=== PATIENT | female | born 1985 | race Caucasian/White ===

== ENCOUNTER → 2019-02-04 08:07 | Outpatient (POV) | payer MEDICAID, SELFPAY ==
[2019-02-04 08:50] LABS: Basophils # 0.1 K/mm3 (0-0.2); Basophils % 0.8 % (0.1-2.0); Eosinophils # 0.4 K/mm3 (0.0-0.4); Eosinophils % 3.6 % (0.1-12.0); Hematocrit 47.3 % (37.0-47.0); Lymphocytes # 3.1 K/mm3 (0.7-4.5); Lymphocytes % 27.3 % (10-50); Mean Corpuscular HGB Conc 31.7 g/dL (31.8-35.4); Mean Corpuscular Hemoglobin 25.2 pg (27.0-31.2); Mean Corpuscular Volume 79.4 fl (81-99); Mean Platelet Volume 7.7 fl (7.4-10.4); Monocytes # 0.5 K/mm3 (0.1-1.0); Monocytes % 4.3 % (1.7-9.3); Neutrophils # 7.3 K/mm3 (1.8-7.8); Neutrophils % 64.2 % (37.0-80.0); Platelet Count 298 K/mm3 (142-424); Red Blood Count 5.96 M/mm3 (4.20-5.40); Red Cell Distribution Width 13.5 % (11.5-17.5); White Blood Count 11.4 K/mm3 (4.8-10.8)
[2019-02-04 09:15] LABS: Urine Pregnancy, HCG Qual. Negative (Negative)
== END ==
PROVIDERS: Visit Provider Otolaryngology
DX: J34.2 Deviated nasal septum (principal); J34.3 Hypertrophy of nasal turbinates; H68.101 Unspecified obstruction of Eustachian tube, right ear; Z01.812 Encounter for preprocedural laboratory examination
CPT/HCPCS: 36415; 81025; 85025

== ENCOUNTER → 2019-08-30 11:26 | Outpatient (CLI) | payer OTHER, SELFPAY ==
--- NOTE | 2019-08-30 | US_ITS ---
PROCEDURE: US GALLBLADDER CLINICAL INDICATION: Right upper quadrant pain for 2 weeks COMPARISON: RUQ US RUQ-(ABD LTD)1ORGAN/QUAD/FU from 02/19/2013 FINDINGS: Pancreas: Unremarkable except that portions of the distal body and tail are obscured by bowel gas. Liver: Unremarkable. There is appropriate direction of blood flow within a non dilated portal vein. Right kidney: The right kidney measures 10.1 x 4.9 x 5.0 cm and appears sonographically normal. Gallbladder: The gallbladder is normal in size and there are 2 moderate-sized calcified gallstone showing prominent acoustic shadowing beneath. The gallbladder wall is normal thickness. The common bile duct is normal in caliber. The previous ultrasound study February 2013 showed a normal appearing gallbladder. IMPRESSION: Cholelithiasis Dictated by: Dr. Nakul Sellers MD 08/30/2019 12:[address] Nakul Sellers MD in [place] 08/30/2019 12:54
== END ==
PROVIDERS: PCP Nurse Practitioner Family; Visit Provider Nurse Practitioner Family
DX: R10.11 Right upper quadrant pain (principal)
CPT/HCPCS: 76705

== ENCOUNTER → 2019-10-03 11:38 | Outpatient (CLI) | payer OTHER, SELFPAY ==
[2019-10-03 12:17] LABS: Basophils # 0.1 K/mm3 (0-0.2); Basophils % 0.6 % (0.1-2.0); Eosinophils # 0.4 K/mm3 (0.0-0.4); Eosinophils % 3.6 % (0.1-12.0); Hematocrit 47.1 % (37.0-47.0); Hemoglobin 15.8 g/dL (12.2-16.2); Lymphocytes # 3.1 K/mm3 (0.7-4.5); Lymphocytes % 27.9 % (10-50); Mean Corpuscular HGB Conc 33.4 g/dL (31.8-35.4); Mean Corpuscular Hemoglobin 25.6 pg (27.0-31.2); Mean Corpuscular Volume 76.7 fl (81-99); Mean Platelet Volume 7.1 fl (7.4-10.4); Monocytes # 0.5 K/mm3 (0.1-1.0); Monocytes % 4.3 % (1.7-9.3); Neutrophils % 63.5 % (37.0-80.0); Platelet Count 290 K/mm3 (142-424); Red Blood Count 6.15 M/mm3 (4.20-5.40); Red Cell Distribution Width 13.3 % (11.5-17.5); White Blood Count 11.1 K/mm3 (4.8-10.8)
[2019-10-03 13:22] LABS: Alanine Aminotransferase 11 U/L (12-78); Albumin Level 4.4 g/dl (3.5-5.0); Albumin/Globulin Ratio 1.5 (1.1-1.8); Alkaline Phosphatase 95 U/L (38-126); Anion Gap 13.3 mEq/L (5-15); Aspartate Amino Transferase 20 U/L (14-36); Bilirubin,Total 0.4 mg/dl (0.2-1.3); Blood Urea Nitrogen 8 mg/dl (7-17); Calcium 10.8 mg/dl (8.4-10.2); Carbon Dioxide 25 mmol/L (22.0-30.0); Chloride 104 mmol/L (98-107); Estimated Glomerular Filt Rate 96 ml/min (>60); GFR (African American) 117 ML/MIN (>60); Globulin 2.9 g/dL (1.3-3.2); Glucose 105 mg/dl (74-100); Potassium 4.3 mmoL/L (3.5-5.1); Sodium 138 mmol/L (136-145); Total Protein,Serum 7.3 g/dl (6.3-8.2)
[2019-10-03 14:39] LABS: HCG Qualitative, Serum Negative (Negative)
[2019-10-03 17:07] LABS: Coronavirus 19 IgG Antibody Negative (Negative); Coronavirus 19 IgM Antibody Negative (Negative)
== END ==
PROVIDERS: Visit Provider Surgery
DX: Z01.818 Encounter for other preprocedural examination (principal); K80.20 Calculus of gallbladder without cholecystitis without obstruction
CPT/HCPCS: 36415; 80053; 84703; 85025; 86328

== ENCOUNTER 2019-10-04 05:59 | Day surgery (SDC) | payer OTHER, SELFPAY ==
--- NOTE | 2019-10-02 09:39 | SUR.PREOP ---
10/02/2019 @ 0940--PHONE CALL MADE TO PATIENT. PATIENT UNDERSTANDS THAT LAB WORK AND COVID TESTING NEEDS TO BE COMPLETED B/W 8-12. PATIENT UNDERSTANDS IF LAB WORK AND COVID-19 TESTS ARE NOT COMPLETED BY 12PM ON THAT DATE, THE SURGERY SCHEDULED WILL BE CANCELLED AND RESCHEDULED FOR ANOTHER TIME.
[2019-10-03 13:18] VITALS: BMI 29.7
[2019-10-04] VITALS (14 sets, daily range): BP systolic 108–135; BP diastolic 64–78; PULSE 66–83; RESP 14–18; TEMP 36.7–43; O2SAT 94–99
--- NOTE | 2019-10-04 07:02 | HMH.ANESCL ---
[facility] Anesthesia Checklist - Patient Identification Patient Identification: Arm Band, Verbal (Name & ) - Structural Data Admitted From: Home Planned Operative Procedure/s: lap choly Consent for Planned Operative Procedure(s) Verified: Yes Verified Documents: History and Physical - NPO Status Verified Time NPO: 00:00 - Chart Verification Results Verified: CBC, BMP - Additional verifications Patient : No Anesthesia Reactions: No Hx Blood Transfusions: No Blood Transfusion Reaction: No Cephalosporin Allergy: No Previous Colonoscopy: No - Cardiovascular Assessment Heart Sounds: S1 & S2 Pulse Strength: Baseline Pulse Rhythm: Regular Peripheral Edema: No - Airway Assessment C-Spine Mobility Assessed: Yes TMJ Mobility Assessed: Yes Dentition: Good Dentition - Neurological Assessment Level of Consciousness: Awake, Alert, Appropriate Hx Seizures: No Numbness or tingling in extremities: No - Anesthesia Plan Anesthesia Risk discussed: Yes Anesthesia Plan: Verified ASA Class: II Anesthesia Type: General [facility] History I have reviewed the patient's past medical history: Yes Medical History: Denies:: Cancer, Diabetes Mellitus Type 1, Diabetes Mellitus Type 2, Internal Pacemaker, MRSA, Seizures *Have you ever received a pneumonia vaccine?: No *Have you received a flu vaccine this season?: No Other Medical History: Reports: Other. Denies: Blood Transfusion Reaction Anesthesia experience/problems:: none Laterality Cases: Right: Breast Biopsy Other Surgeries: Yes: , Sinus Surgery, Tubal Ligation, Other. No: Pacemaker Amputation: No Fractures: No - *Social History Educational Level: Completed High School Smoking Status: Current every day smoker Tobacco Type: cigarettes # Packs/Day (cigarettes): 1 #Yrs smoked (if former smoker): 13 Alcohol Intake: current Alcohol Intake Frequency:: holidays/special occasions only Substance Use Type: marijuana *Occupational Status:: employed Housing: house Household Members: spouse, family *Travel in the last 8 weeks: None - Psychiatric History Pschychiatric History:: Reports:: Bipolar Disorder Family Hx:: No significant family history
--- NOTE | 2019-10-04 08:36 | HMH.OPNOTE ---
Date of procedure: 10/04/19 Pre-op Diagnosis:: Symptomatic cholelithiasis Post-op Diagnosis:: Chronic calculus cholecystitis Procedure performed:: Laparoscopic cholecystectomy Surgeon:: Elliott Blanton MD [employer] OFFICER:: Jassi Estrada Anesthesia: GETA Estimated blood loss (mL): 15 Operative findings:: Small pericholecystic liver nodule Significant pericholecystic fat stranding Significant gallbladder distention Operative note:: After informed consent was obtained, the patient was taken to the operating room and placed in the supine position. General anesthesia was induced and the abdomen was prepped and draped in a sterile fashion. After infiltration with local anesthetic an infraumbilical incision was made. A Veress needle was placed in position. The abdomen was insufflated. A 5 mm optical trocar was placed in position. Under direct visualization, a 12 mm trocar was placed in the subxiphoid position and 2 additional 5 mm trocars were placed in the right upper quadrant. The gallbladder was elevated up and over the liver margin. The tissue around the cystic duct was carefully dissected. 3 clips were placed proximally and the duct was transected with harmonic joan. Harmonic joan were then utilized to dissect the gallbladder away from the liver margin with careful attention to the control of the cystic artery (artery also controlled with 2 clips prior to harmonic dissection). The gallbladder was placed in a retrieval bag and removed through the subxiphoid trocar site. The right upper quadrant was thoroughly irrigated. No active bleeding or bile leak was noted. Fascia at the subxiphoid trocar site was reapproximated utilizing 0 Ethibond. The remaining trocars were removed. All wounds were irrigated and skin was closed with 4-0 Monocryl in a subcuticular fashion. Steri-Strips were applied. The patient's anesthetic agents were reversed and extubation was completed prior to transfer to recovery in stable condition. Condition: stable Disposition: PACU Specimens:: Gallbladder and contents Pericholecystic liver nodule Complications:: No immediate
--- NOTE | 2019-10-04 08:46 | P.PN_ITS ---
[facility] Anesthesia Record Part I Intake, IV Amount: 800 Estimated blood loss (mL): 10 Urine output (mL): 0 Blood Products used (#): none Blood Pressure: 135/77 SaO2: 99 Pulse Rate: 73 Respiratory Rate: 18 Temperature: 98.3 F Patient is:: Drowsy, Stable Stable to PACU at:: 08:43
--- NOTE | 2019-10-04 10:30 | HMH.ANESII ---
[facility] Anesthesia Record Part II Discharge Time: 09:15 Destination: Surgical Day Care (OP Surgery) PACU nurse assessment reviewed?: Yes Patient Condition:: Good Anesthesia Complications:: None Swallowing reflex intact?: Yes Cyanosis?: No Blood Pressure: 126/77 Pulse Rate: 77 Temperature: 98.6 F Mental Status: Alert & Oriented Pain level:: 4 Nausea and/or vomitting:: None Intake, IV Amount: 50
== END 2019-10-04 10:15 | disposition home or self-care (01) ==
LOC: OR 06:01
PROVIDERS: PCP Nurse Practitioner Family; Visit Provider Surgery
PROC: 0FT44ZZ Resection of Gallbladder, Percutaneous Endoscopic Approach (ICD-10-PCS; CPT 47562; principal; 2019-10-04 07:30)
DX: K80.10 Calculus of gallbladder with chronic cholecystitis without obstruction; K76.9 Liver disease, unspecified; Z88.5 Allergy status to narcotic agent; Z79.899 Other long term (current) drug therapy; Z72.0 Tobacco use; F31.9 Bipolar disorder, unspecified; F19.11 Other psychoactive substance abuse, in remission
CPT/HCPCS: 47562; 96374; J2405; J2710

== ENCOUNTER → 2020-03-20 14:28 | Outpatient (CLI) | payer OTHER, SELFPAY ==
--- NOTE | 2020-03-20 14:42 | US_ITS ---
PROCEDURE: US THYROID CLINICAL INDICATION: thyroid enlarged COMPARISON: No exams were available for comparison FINDINGS: The right lobe is 4 x 0.9 x 1.1 cm. A 2 mm hypoechoic nodule with a central hyperechoic focus is present in the mid polar region. The left lobe is 4.8 x 1.1 x 1.7 cm. A 6 x 4 mm mixed nodule is present in the lower pole. A 2 point by 1.2 cm slightly hypoechoic well-circumscribed nodules present in the lower pole T rads level 32.5 cm or greater. Suggest ultrasound-guided FNA. IMPRESSION: TR level 3 nodule 2.5 cm or greater in the lower pole on the left. Recommend ultrasound-guided FNA. Dictated by: Quinten Landa MD 03/20/2020 16:30 Quinten Landa MD in [place] 03/20/2020 16:30
[2020-03-20 16:54] LABS: Free T4 (Free Thyroxine) 0.87 ng/dl (0.78-2.19)
[2020-03-20 17:07] LABS: Thyroid Stimulating Hormone 1.09 uIU/mL (0.465-4.68)
[2020-03-24 12:37] LABS: Thyroid Peroxidase Antibodies <9 IU/mL (0-34)
[2020-03-25 11:53] LABS: Thyroid Stimulating Immunoglob <0.10 IU/L (0.00-0.55)
== END ==
PROVIDERS: PCP Nurse Practitioner Family; Visit Provider Otolaryngology
DX: E01.0 Iodine-deficiency related diffuse (endemic) goiter (principal)
CPT/HCPCS: 36415; 76536; 84439; 84443; 84445; 86376

== ENCOUNTER → 2020-03-31 12:45 | Outpatient (CLI) | payer OTHER, SELFPAY ==
--- NOTE | 2020-03-31 12:45 | US_ITS ---
PROCEDURE: US FNA THYROID CLINICAL INDICATION: Thyroid nodule COMPARISON: US US THYROID from 03/20/2020 TECHNIQUE: Pre biopsy exam performed once again confirming the solid nodule in the lower pole on the left. Following obtaining informed consent, using aseptic technique and local anesthesia with buffered lidocaine, fine-needle aspiration was performed of the nodule of interest using sonographic guidance. 3 passes were made into the nodule with a 21 gauge needle. Specimen was given to cytology. The patient tolerated the procedure well without evidence of immediate complications and left the ultrasound suite in stable condition. FINDINGS: CYTOLOGY: Benign follicular nodule. Negative for malignancy IMPRESSION: Uneventful ultrasound-guided FNA of the left thyroid nodule showing benign follicular nodule, negative for malignancy. Dictated by: Quinten Landa MD 05/01/2020 14:57 Quinten Landa MD in [place] 05/01/2020 14:57
== END ==
PROVIDERS: PCP Nurse Practitioner Family; Visit Provider Otolaryngology
DX: E01.0 Iodine-deficiency related diffuse (endemic) goiter (principal); E04.9 Nontoxic goiter, unspecified
CPT/HCPCS: 10005; 76942

== ENCOUNTER → 2020-06-30 12:48 | Outpatient (CLI) | payer OTHER, SELFPAY ==
--- NOTE | 2020-06-30 12:48 | US_ITS ---
PROCEDURE: US THYROID CLINICAL INDICATION: goiter COMPARISON: US US THYROID from 03/20/2020 US US FNA THYROID from 03/31/2020 FINDINGS: The right lobe is 3.8 x 1.3 x 1.2 cm. The left lobe is 4.7 x 1.3 x 2.3 cm. There is a small cyst in the right lobe upper pole at 2 mm. In the left lower pole there is a mixed nodule at 6 mm unchanged. A well-circumscribed solid 2.3 x 1.1 cm nodules present in the lower pole unchanged. This nodule was recently biopsied with FNA and with negative for malignant cells. No new nodules are evident. IMPRESSION: Stable ultrasound of the thyroid with no change in the 2 left-sided thyroid nodules. Dictated by: Quinten Landa MD 07/01/2020 18:07 Quinten Landa MD in [place] 07/01/2020 18:07
== END ==
PROVIDERS: PCP Nurse Practitioner Family; Visit Provider Otolaryngology
DX: E01.0 Iodine-deficiency related diffuse (endemic) goiter (principal); E04.9 Nontoxic goiter, unspecified
CPT/HCPCS: 76536

== ENCOUNTER → 2020-10-23 09:10 | Outpatient (CLI) | payer OTHER, SELFPAY ==
--- NOTE | 2020-10-23 09:14 | XR_ITS ---
PROCEDURE: XR FOOT WT BEARING LT 3V CLINICAL INDICATION: foot pain COMPARISON: CR FTR3 FOOT-RT-3 VIEWS from 02/19/2014 CR FTL3 FOOT-LT-3 VIEWS from 11/21/2016 CR FTL3 FOOT-LT-3 VIEWS from 01/27/2017 FINDINGS: No fracture or dislocation. No lytic or blastic change. There is normal mineralization. The joint spaces are well-preserved. No significant degenerative/arthritic changes. No erosive changes evident. Other findings:Small accessory center of ossification noted at the anterior distal tibia IMPRESSION: No change with no acute finding Dictated by: Quinten Landa MD 10/23/2020 10:22 Quinten Landa MD in [place] 10/23/2020 10:22
== END ==
PROVIDERS: PCP Nurse Practitioner Family; Visit Provider Podiatrist
DX: M79.672 Pain in left foot (principal)
CPT/HCPCS: 73630

== ENCOUNTER 2021-01-30 09:45 | Emergency (ER) | payer OTHER, SELFPAY ==
[2021-01-30 09:55] VITALS: BP 127/81; PULSE 96; RESP 19; TEMP 37.1; O2SAT 99; BMI 26.6
--- NOTE | 2021-01-30 10:45 | HMH.EDUTC ---
[facility] [place] Disposition Clinical Impression: Acute bronchitis Qualifiers: Bronchitis organism: unspecified organism Qualified Code(s): J20.9 - Acute bronchitis, unspecified Disposition: Home, Self-Care Condition on Discharge: Good Instructions: DI for Acute Bronchitis Additional Instructions: Start antibiotic today. Be sure to complete entire prescription even if feeling better Tylenol and ibuprofen as needed for pain or fever Humidifier/vaporizer/hot steamy shower Follow-up with primary care tomorrow. Follow-up immediately in the ER of the [facility] for new or worsening symptoms or no noticeable improvement over the next 48-72 hours. Stop smoking Start steroids today. Helps with inflammation therefore coughing and wheezing. Follow directions on package. Prescriptions: predniSONE [Prednisone 20mg Tab] 20 mg PO BID #10 tab Transmission Status: Pending to [id number] Azithromycin [Zithromax 250mg tab] 250 mg PO DIRECTED #6 tab Transmission Status: [facility] Referrals: Zenia Hatch APRN [Primary Care Provider] - Medical Decision Making - Javi Inquiry Pt receiving controlled substance: No Vital Signs: 01/30/21 09:55 Temperature 98.7 F Temperature Source Oral Pulse Rate [Right Brachial] 96 H Respiratory Rate 19 Blood Pressure [Right Arm] 127/81 Blood Pressure Mean [Right Arm] 96 Blood Pressure Source [Right Arm] Automatic Cuff Blood Pressure Position [Right Arm] Sitting 02 Sat by Pulse Oximetry 99 Oxygen Delivery Method Room Air Orders (Tests/Meds): ORDERS Category Date Time Status Covid-19 Nasal PCR ([facility]) Routine Lab 01/30/21 10:43 Ordered [facility] [place] HPI - General Chief complaint: Urgent Treatment [facility] Stated complaint: congestion, cough Time Seen by Provider: 01/30/21 10:46 Mode of Arrival: Ambulatory Source of Information: Patient Limitations: No Limitations Description of Symptoms (Recalled from Triage Doc. by RN): PATIENT C/O COUGH AND CONGESTION X 3 DAYS HEENT Symptoms (Recalled from RN notes): Yes Resp Symptoms (Recalled from RN notes): Yes Skin Symptoms (Recalled from RN notes): No MS Symptoms (Recalled from RN notes): No Functional Status (Recalled from RN notes): WNL - History of Present Illness Provider Complaint: 35 yr old female presents for congestion, coughing and wheezing since weds. pt states she had a family member that was dx with bronchititis. - Related Data Previous Rx's Medication Instructions Recorded Azithromycin [Zithromax 250mg 250 mg PO DIRECTED #6 tab 01/30/21 tab] predniSONE [Prednisone 20mg 20 mg PO BID #10 tab 01/30/21 Tab] Allergies Allergy/AdvReac Type Severity Reaction Status Date / Time oxycodone [From PERCOCET] Allergy Unknown Verified 11/02/20 10:33 - Worker's Comp Is this a Worker's Comp case?: No [facility] History - Hepatitis A Screen Drug use history?: No High risk sexual behaviors?: No History of sexually transmitted infection?: No Currently employed?: No Childcare worker?: No Do you have indoor plumbing?: Yes Do you have electricity?: Yes Attestation statement:: This patient has been screened for Hepatitis A risk factors. I have reviewed the patient's past medical history: Yes Medical History: Reports:: Anxiety Denies:: Cancer, Diabetes Mellitus Type 1, Diabetes Mellitus Type 2, Internal Pacemaker, MRSA, Seizures Other Medical History: Reports: Sinus Problems, Other. Denies: Blood Transfusion Reaction Laterality Cases: Right: Breast Biopsy Other Surgeries: Yes: Cholecystectomy, (2014), Sinus Surgery, Tubal Ligation (2014), Other. No: Pacemaker Amputation: No Fractures: No Comment: Cyst removed from left breast,. mole removed from back of right ear. Left foot cyst removal in 2017 - Social History Smoking Status: Current every day smoker Tobacco Type: cigarettes # Packs/Day (cigarettes): 1 #Yrs smoked (if former smoker): 13 Alcohol Intake: never A
[2021-01-30 10:55] VITALS: BP 127/81; PULSE 96; RESP 19; TEMP 37.1; O2SAT 99
== END 2021-01-30 11:00 | disposition home or self-care (01) ==
PROVIDERS: Emergency Provider Nurse Practitioner Family; PCP Nurse Practitioner Family
DX: J20.9 Acute bronchitis, unspecified (principal); Z20.822 Contact with and (suspected) exposure to COVID-19; F41.9 Anxiety disorder, unspecified; F17.210 Nicotine dependence, cigarettes, uncomplicated
CPT/HCPCS: 99202; C9803; G0463; U0003; U0005

== ENCOUNTER → 2021-02-03 10:00 | Outpatient (CLI) | payer OTHER, SELFPAY | PROVIDERS: PCP Nurse Practitioner Family; Visit Provider Nurse Practitioner | DX: Z20.822 Contact with and (suspected) exposure to COVID-19 (principal) | CPT/HCPCS: C9803; U0003; U0005 ==

== ENCOUNTER 2021-04-19 09:20 | Emergency (ER) | payer OTHER, SELFPAY ==
[2021-04-19 09:55] VITALS: BP 113/76; PULSE 70; RESP 20; TEMP 36.6; O2SAT 99; BMI 29.9
--- NOTE | 2021-04-19 10:21 | HMH.EDUTC ---
[facility] [place] Disposition Clinical Impression: URI (upper respiratory infection) Qualifiers: URI type: unspecified URI Qualified Code(s): J06.9 - Acute upper respiratory infection, unspecified Disposition: Home, Self-Care Condition on Discharge: Good Instructions: Sore Throat, DI for Chronic Pain -- Adult, Nystatin, Cefdinir Additional Instructions: *Monitor Temp, Over the counter Motrin or Tylenol as directed/as needed Tylenol every 4 hours and Motrin every 6 hours (as long as your family doctor has told you that you can take it) for fever or pain. and straight to ER if unable to lower temp less than 101.0 after medication given *Warm salt water gargles may help to soothe the throat *Throat Lozenges *Warm fluids like tea with honey may help to soothe the throat *Sleep elevated *Humidifier/Vaporizer Take medication as prescribed Your throat swab was sent for culture. Those results are typically sent to your primary care. Be sure to follow up in 2-3 days with your family doctor/primary care physician if no improvement so they can review those result and treat if necessary. If you don?t have a primary care doctor, I recommend you get one but in the mean time, you will have to return to a walk in clinic Follow up IMMEDIATELY for new or worsening symptoms or no Noticeable improvement over the next 48-72 hours. 911 for difficulty breathing or swallowing You were tested for today for COVID19 your test result should be back in the next 24-48 hours, you may Check your results on the [facility] My Health Portal if you have trouble logging on you may call You was given a handout with instructions for Self Quarantine and Self isolation for while you wait on test results and what to do if they are positive If you are positive the Health Dept will be contacting you also Make sure to take your Vitamins Vit. C Vit D and Zinc if you can take them Prescriptions: Nystatin [Nystatin Susp 500,000 Units/5mL Udc] 4 ml PO QID 10 Days #160 ml Transmission Status: [facility] Cefdinir [Omnicef 300mg Capsule] 300 mg PO BID #20 cap Transmission Status: Sent to [facility] Referrals: Zenia Hatch APRN [Primary Care Provider] - As needed Forms: Work/School Release Time of Disposition: 10:47 Medical Decision Making - Javi Inquiry Pt receiving controlled substance: No Javi was queried for this patient: No Vital Signs: 04/19/21 09:55 Temperature 97.9 F Temperature Source Oral Pulse Rate [Right Brachial] 70 Respiratory Rate 20 Blood Pressure [Right Arm] 113/76 Blood Pressure Mean [Right Arm] 88 Blood Pressure Source [Right Arm] Automatic Cuff Blood Pressure Position [Right Arm] Sitting 02 Sat by Pulse Oximetry 99 Oxygen Delivery Method Room Air - Lab Data Lab results reviewed: Yes: I reviewed the patient's lab results. Lab Results 04/19/21 09:44: Strep Scn Rapid Clinic Negative 04/19/21 10:21: Monoscreen Negative Orders (Tests/Meds): ORDERS Category Date Time Status Covid-19 Nasal PCR ([facility]) Routine Lab 04/19/21 10:49 Ordered Strep Screen Confirmation Stat Micro 04/19/21 09:44 Received [facility] UTC HPI - General Stated complaint: possible strep Time Seen by Provider: 04/19/21 10:22 Mode of Arrival: Ambulatory Source of Information: Patient Limitations: No Limitations Description of Symptoms (Recalled from Triage Doc. by RN): PATIENT C/O SWOLLEN LYMPH NODES IN NECK AND SORE THROAT SINCE MONDAY HEENT Symptoms (Recalled from RN notes): Yes Resp Symptoms (Recalled from RN notes): No Skin Symptoms (Recalled from RN notes): No MS Symptoms (Recalled from RN notes): No Functional Status (Recalled from RN notes): WNL - History of Present Illness Provider Complaint: Patient state that she has been having sore throat and swelling in her lymph nodes States that she noticed her tongue looked white and she tried to scrap it off it but it wouldnt come off States that today she was still feeling bad so she came
[2021-04-19 10:24] LABS: UTC Strep Screen (Rapid) Negative (Negative)
[2021-04-19 10:43] LABS: Monoscreen (Rapid) Negative (Negative)
[2021-04-19 10:52] VITALS: BP 113/76; PULSE 70; RESP 20; TEMP 36.6; O2SAT 99
== END 2021-04-19 10:58 | disposition home or self-care (01) ==
PROVIDERS: Emergency Provider Nurse Practitioner; PCP Nurse Practitioner Family
DX: J06.9 Acute upper respiratory infection, unspecified (principal); J02.9 Acute pharyngitis, unspecified; F41.9 Anxiety disorder, unspecified; F17.210 Nicotine dependence, cigarettes, uncomplicated; Z20.822 Contact with and (suspected) exposure to COVID-19
CPT/HCPCS: 86318; 87880; 99203; C9803; G0463; U0003; U0005

== ENCOUNTER 2021-06-01 17:08 | Emergency (ER) | payer OTHER, SELFPAY ==
[2021-06-01 17:15] VITALS: BP 129/79; PULSE 76; RESP 16; TEMP 37; O2SAT 99; BMI 27.4
--- NOTE | 2021-06-01 17:22 | XR_ITS ---
PROCEDURE INFORMATION: Exam: XR Right Foot Exam date and time: 06/01/2021 5:22 PM Age: 36 years old Clinical indication: Pain; Foot; Right; Additional info: Pain at mid lateral foot, no known injury TECHNIQUE: Imaging protocol: XR Right foot. Views: 3 or more views. COMPARISON: No relevant prior studies available. FINDINGS: Bones/joints: There is no evidence of acute fracture. There is no evidence of joint malalignment or dislocation. Soft tissues: No focal soft tissue swelling. IMPRESSION: 1. No evidence of acute fracture. 2. No evidence of acute dislocation.
--- NOTE | 2021-06-01 18:10 | HMH.EDUTC ---
[facility] [place] Clinical Impression: Thrush Foot sprain Qualifiers: Encounter type: initial encounter Laterality: right Qualified Code(s): S93.601A - Unspecified sprain of right foot, initial encounter Disposition: Home, Self-Care Condition on Discharge: Good Instructions: DI for Thrush, Nystatin, Thrush-Adult Additional Instructions: Use Nystatin as prescribed Ice to foot 2-3 times daily to help with pain and swelling Follow up with your Family Doctor if pain continues Return if needed Straight to ER if any life threatening symptoms Prescriptions: Nystatin [Nystatin Susp 500,000 Units/5mL Udc] 4 ml PO QID 10 Days #160 ml Transmission Status: Pending to [id number] Referrals: Zenia Hatch APRN [Primary Care Provider] - As needed Time of Disposition: 18:21 Medical Decision Making - Javi Inquiry Pt receiving controlled substance: No Javi was queried for this patient: No Vital Signs: 06/01/21 17:15 Temperature 98.6 F Temperature Source Oral Pulse Rate [Right Brachial] 76 Respiratory Rate 16 Blood Pressure [Right Arm] 129/79 Blood Pressure Mean [Right Arm] 95 Blood Pressure Source [Right Arm] Automatic Cuff Blood Pressure Position [Right Arm] Sitting 02 Sat by Pulse Oximetry 99 Oxygen Delivery Method Room Air - Radiology Data #1 Image(s): Foot/Toes Image Reviewed: Yes I have reviewed radiologist's interpretation IMPRESSION: 1. No evidence of acute fracture. 2. No evidence of acute dislocation. [facility] [place] - General Stated complaint: pain in R foot no accident possible thrush Time Seen by Provider: 06/01/21 18:10 Mode of Arrival: Ambulatory Source of Information: Patient Limitations: No Limitations Description of Symptoms (Recalled from Triage Doc. by RN): PATIENT C/O PAIN IN RIGHT FOOT X 2 DAYS AND IS CONCERNED SHE HAS THRUSH IN MOUTH HEENT Symptoms (Recalled from RN notes): Yes Resp Symptoms (Recalled from RN notes): No Skin Symptoms (Recalled from RN notes): No MS Symptoms (Recalled from RN notes): No Functional Status (Recalled from RN notes): WNL - History of Present Illness Provider Complaint: Patient states that she has been having pain in the side of her right foot Denies any known injury States that it just hurts at times when she is walking States that also she had thrush awhile back and thinks it may have returned States that she noticed white thick film on her tongue like she had when she had thrush so she wanted that looked at too - Related Data Home Medications Medication Instructions Recorded Confirmed Escitalopram Oxalate [Lexapro] 10 mg PO DAILY 06/01/21 06/01/21 Previous Rx's Medication Instructions Recorded Nystatin [Nystatin Susp 500,000 4 ml PO QID 10 Days #160 ml 06/01/21 Units/5mL Udc] Allergies Allergy/AdvReac Type Severity Reaction Status Date / Time oxycodone [From PERCOCET] Allergy Unknown Verified 11/02/20 10:33 - Worker's Comp Is this a Worker's Comp case?: No [facility] History - Hepatitis A Screen Drug use history?: No High risk sexual behaviors?: No History of sexually transmitted infection?: No Currently employed?: No Childcare worker?: No Do you have indoor plumbing?: Yes Do you have electricity?: Yes Attestation statement:: This patient has been screened for Hepatitis A risk factors. I have reviewed the patient's past medical history: Yes Medical History: Reports:: Anxiety Denies:: Cancer, Diabetes Mellitus Type 1, Diabetes Mellitus Type 2, Internal Pacemaker, MRSA, Seizures Other Medical History: Reports: Sinus Problems, Other. Denies: Blood Transfusion Reaction Laterality Cases: Right: Breast Biopsy Other Surgeries: Yes: Cholecystectomy, (2013), Sinus Surgery, Tubal Ligation (2013), Other. No: Pacemaker Amputation: No Fractures: No Comment: Cyst removed from left breast,. mole removed from back of right ear. Left foot cyst removal in 2017 - Social History Smoking Status: Current ever
[2021-06-01 18:22] VITALS: BP 129/79; PULSE 76; RESP 16; TEMP 37; O2SAT 99
== END 2021-06-01 18:26 | disposition home or self-care (01) ==
PROVIDERS: Emergency Provider Nurse Practitioner; PCP Nurse Practitioner Family
DX: S93.601A Unspecified sprain of right foot, initial encounter (principal); B37.9 Candidiasis, unspecified; F41.9 Anxiety disorder, unspecified; F17.210 Nicotine dependence, cigarettes, uncomplicated
CPT/HCPCS: 73630; 99202; G0463

== ENCOUNTER → 2021-07-13 07:22 | Outpatient (CLI) | payer OTHER, SELFPAY ==
[2021-07-13 08:34] LABS: Urine Pregnancy, HCG Qual. Negative (Negative)
== END ==
PROVIDERS: Visit Provider Student in an Organized Health Care Education/Training Program
DX: Z01.812 Encounter for preprocedural laboratory examination (principal); Z11.52 Encounter for screening for COVID-19; L98.9 Disorder of the skin and subcutaneous tissue, unspecified
CPT/HCPCS: 81025; C9803; U0003; U0005

== ENCOUNTER 2021-07-14 06:22 | Day surgery (SDC) | payer OTHER, SELFPAY ==
[2021-07-12 09:20] VITALS: BMI 26.6
[2021-07-14 07:01] VITALS: BP 105/61; PULSE 66; RESP 18; TEMP 36.3; O2SAT 99
--- NOTE | 2021-07-14 07:56 | P.PN_ITS ---
[facility] Anesthesia Checklist - Structural Data Admitted From: Home Planned Operative Procedure/s: excision neoplasm r eyebrow Consent for Planned Operative Procedure(s) Verified: Yes - Additional verifications Anesthesia Reactions: No Hx Blood Transfusions: No Blood Transfusion Reaction: No - Airway Assessment C-Spine Mobility Assessed: Yes TMJ Mobility Assessed: Yes Dentition: Good Dentition - Neurological Assessment Level of Consciousness: Awake, Alert, Appropriate - Anesthesia Plan Anesthesia Risk discussed: Yes Anesthesia Plan: Verified ASA Class: II Anesthesia Type: MAC [facility] History I have reviewed the patient's past medical history: Yes Medical History: Reports:: Anxiety Denies:: Cancer, Diabetes Mellitus Type 1, Diabetes Mellitus Type 2, Internal Pacemaker, MRSA, Seizures *Have you ever received a pneumonia vaccine?: No *Have you received a flu vaccine this season?: No Other Medical History: Reports: Sinus Problems, Other. Denies: Blood Transfusion Reaction Anesthesia experience/problems:: none Laterality Cases: Right: Breast Biopsy Other Surgeries: Yes: Cholecystectomy, (2013), Sinus Surgery, Tubal Ligation (2013), Other. No: Pacemaker Amputation: No Fractures: No - *Social History Last grade of school completed: High school graduate Smoking Status: Current every day smoker Tobacco Type: cigarettes # Packs/Day (cigarettes): 1 #Yrs smoked (if former smoker): 13 Alcohol Intake: never Alcohol Intake Frequency:: holidays/special occasions only Substance Use Type: marijuana *Occupational Status:: other Housing: house Household Members: spouse, family *Travel in the last 8 weeks: None - Psychiatric History Pschychiatric History:: Reports:: Anxiety, Bipolar Disorder Family Hx:: No significant family history
--- NOTE | 2021-07-14 08:39 | P.OP_ITS ---
Date of procedure: 07/14/21 Pre-op Diagnosis:: right brow mass Post-op Diagnosis:: same Procedure performed:: excision right brow mass Surgeon:: Isma Reyes MD FINISHING LAB TECHNICIAN:: Lee Guallpa Anesthesia: MAC Estimated blood loss (mL): 2 Operative findings:: right brow mass Operative note:: The patient was brought to the OR, laid in the supine position, MAC anesthesia was induced. Patient was prepped and draped in usual fashion. Patient had an approximately 4 mm broad based, wart appearing mass situated in her right brow. Approximately 1 cc of lidocaine with epinephrine 1-100,000 was injected under the lesion. Then using a 15 blade the mass was excised at the base in an elliptical fashion. A small amount of undermining was then performed, and the skin edges were then reapproximated with interrupted fast gut suture. Masses sent for permanent pathology. She was then turned back over to anesthesia to be awoken. Condition: stable Disposition: PACU Complications:: none
[2021-07-14 08:40] VITALS: BP 112/66; PULSE 69; RESP 16; TEMP 36.3; O2SAT 97
[2021-07-14 08:55] VITALS: BP 101/79; PULSE 62; RESP 16; O2SAT 98
[2021-07-14 09:10] VITALS: BP 112/73; PULSE 61; RESP 18; TEMP 36.3; O2SAT 99
== END 2021-07-14 09:10 | disposition home or self-care (01) ==
LOC: OR 06:24
PROVIDERS: PCP Nurse Practitioner Family; Visit Provider Student in an Organized Health Care Education/Training Program
PROC: (CPT 11106; principal; 2021-07-14 08:00)
DX: D23.39 Other benign neoplasm of skin of other parts of face (principal); F41.9 Anxiety disorder, unspecified; F12.90 Cannabis use, unspecified, uncomplicated; F31.9 Bipolar disorder, unspecified; Z79.899 Other long term (current) drug therapy; Z72.0 Tobacco use; Z88.6 Allergy status to analgesic agent
CPT/HCPCS: 11106

== ENCOUNTER 2022-02-18 08:35 | Emergency (ER) | payer OTHER, SELFPAY ==
[2022-02-18 09:01] VITALS: BP 118/60; PULSE 76; RESP 18; TEMP 36.8; O2SAT 99; BMI 28.8
--- NOTE | 2022-02-18 09:20 | EXP.UTC ---
Discharge Plan Disposition Patient Disposition: Home, Self-Care Condition: Good Prescriptions Prescriptions: New prednisone [prednisone] 20 mg tablet 20 mg PO BID 5 Days Qty: 10 0RF doxycycline monohydrate 100 mg tablet 100 mg PO BID 10 Days Qty: 20 0RF albuterol sulfate [Ventolin HFA] 90 mcg/actuation HFA aerosol inhaler 2 puff inhalation QIDP PRN (Reason: Wheezing) 30 Days Qty: 1 0RF No Action escitalopram oxalate 10 MG tablet 10 mg PO DAILY ondansetron HCl 4 MG tablet 4 mg PO TIDP PRN (Reason: Nausea) Qty: 10 0RF Referrals Follow up/Referrals: Zenia Hatch APRN [Primary Care Provider] - See instructions Activity Restrictions/Add. Instructions Additional Instructions/Restrictions: Take all medications as prescribed Follow up with PCP if not improving Clinical Impressions Clinical Impression: Acute bronchitis, Tobacco use Stand Alone Forms Stand Alone Forms: Work/School Release Instructions Patient Instructions: DI for Acute Bronchitis Discharge ED Provider: Monica Badillo [facility] [place] General Stated complaint: Congestion,cough Mode of Arrival: Ambulatory Source of Information: Patient Limitations: No Limitations Time Seen by Provider: 02/18/22 09:20 Description of Symptoms (Recalled from Triage Doc. by RN): pt comes in with c/o cough, congestion ongoing for since 02/15 HEENT Symptoms (Recalled from RN notes): No Resp Symptoms (Recalled from RN notes): Yes Skin Symptoms (Recalled from RN notes): No MS Symptoms (Recalled from RN notes): No Functional Status (Recalled from RN notes): n/a History of Present Illness Provider Complaint: Cough and congestion X 4 days. No fever. Chest is tight, rattly. Can't cough sputum up. Onset (ago): day(s) (4) Location: chest Related Data Home Medications Medication Instructions Recorded Confirmed escitalopram oxalate 10 mg tablet 10 mg PO DAILY BIPOLAR 06/01/21 07/14/21 Previous Rx's Medication Instructions Recorded ondansetron HCl 4 mg tablet 4 mg PO TIDP PRN Nausea #10 tabs 07/14/21 albuterol sulfate 90 mcg/actuation 2 puff inhalation QIDP PRN 02/18/22 aerosol inhaler (Ventolin HFA) Wheezing 30 days #1 ea doxycycline monohydrate 100 mg 100 mg PO BID 10 days #20 tabs 02/18/22 tablet prednisone 20 mg tablet 20 mg PO BID 5 days #10 tabs 02/18/22 Allergies Allergy/AdvReac Type Severity Reaction Status Date / Time oxycodone [From PERCOCET] Allergy Unknown Verified 02/18/22 09:11 Worker's Comp Is this a Worker's Comp case?: No PFSH PFSH Social History Smoking Status: Current every day smoker tobacco type: cigarettes packs per day: 1 second hand exposure: No alcohol intake: never substance use type: marijuana current occupational status: other Travel in the last 8 weeks: None household members: spouse and family housing: house current occupation: [employer] current occupational exposures/hazards: No caffeine: Yes ROS Obtained: Yes All systems reviewed & no additional complaints except as documented ENT Ears, Nose, Mouth, and Throat: Reports nasal congestion Respiratory Respiratory: Reports chest congestion and Reports cough Physical Exam General General appearance: alert and in no apparent distress Head Head exam: atraumatic, normocephalic and normal inspection Eye Eye exam: Present normal appearance, PERRL and EOMI ENT ENT exam: Present normal exam, normal oropharynx, mucous membranes moist, TM's normal bilaterally and normal external ear exam Neck Neck exam: Present normal inspection, full ROM and trachea midline; Absent meningismus or lymphadenopathy Chest Chest inspection: Present normal inspection and symmetric chest wall rise; Absent tenderness Respiratory Respiratory exam: Present wheezes; Absent respiratory distress Cardiovascular Cardiovascular exam: Present regular rate and normal rhythm; Absent
[2022-02-18 09:44] VITALS: BP 118/60; PULSE 76; RESP 18; TEMP 36.8
== END 2022-02-18 09:45 | disposition home or self-care (01) ==
PROVIDERS: Emergency Provider Physician Assistant; PCP Nurse Practitioner Family
DX: J20.9 Acute bronchitis, unspecified (principal); Z72.0 Tobacco use
CPT/HCPCS: 99212; G0463

== ENCOUNTER 2022-04-02 09:52 | Emergency (ER) | payer OTHER, SELFPAY ==
[2022-04-02 10:42] VITALS: BP 114/77; PULSE 98; RESP 17; TEMP 37.6; O2SAT 100; BMI 28.2
[2022-04-02 10:46] LABS: UTC Influenza A Antigen Negative (Negative)
[2022-04-02 10:47] LABS: UTC Influenza B Antigen Negative (Negative)
--- NOTE | 2022-04-02 11:38 | EXP.UTC ---
Discharge Plan Disposition Patient Disposition: Home, Self-Care Condition: Good Prescriptions Prescriptions: New doxycycline monohydrate 100 mg capsule 100 mg PO BID 10 Days Qty: 20 0RF No Action prednisone [prednisone] 20 mg tablet 20 mg PO BID 5 Days Qty: 10 0RF doxycycline monohydrate 100 mg tablet 100 mg PO BID 10 Days Qty: 20 0RF albuterol sulfate [Ventolin HFA] 90 mcg/actuation HFA aerosol inhaler 2 puff inhalation QIDP PRN (Reason: Wheezing) 30 Days Qty: 1 0RF escitalopram oxalate 10 MG tablet 10 mg PO DAILY ondansetron HCl 4 MG tablet 4 mg PO TIDP PRN (Reason: Nausea) Qty: 10 0RF Referrals Follow up/Referrals: Zenia Hatch APRN [Primary Care Provider] - See instructions Clinical Impressions Clinical Impression: URI (upper respiratory infection) Instructions Patient Instructions: DI for Viral Upper Respiratory Infection -- Adult Discharge ED Provider: Sandra Rinaldi [facility] General Stated complaint: Headach,Cough Mode of Arrival: Ambulatory Source of Information: Patient Limitations: No Limitations Time Seen by Provider: 04/02/22 11:38 Description of Symptoms (Recalled from Triage Doc. by RN): pt comes in with c/o cough, headache. symptoms began yesterday HEENT Symptoms (Recalled from RN notes): Yes Resp Symptoms (Recalled from RN notes): Yes Skin Symptoms (Recalled from RN notes): No MS Symptoms (Recalled from RN notes): No Functional Status (Recalled from RN notes): n/a History of Present Illness Provider Complaint: Pt relates that she has had a cough, sore throat, and runny nose for the past few days. She states that she has a history of asthma and has had to use her inhaler due to not feeling like she can get enough air. Related Data Home Medications Medication Instructions Recorded Confirmed escitalopram oxalate 10 mg tablet 10 mg PO DAILY BIPOLAR 06/01/21 07/14/21 Previous Rx's Medication Instructions Recorded ondansetron HCl 4 mg tablet 4 mg PO TIDP PRN Nausea #10 tabs 07/14/21 albuterol sulfate 90 mcg/actuation 2 puff inhalation QIDP PRN 02/18/22 aerosol inhaler (Ventolin HFA) Wheezing 30 days #1 ea doxycycline monohydrate 100 mg 100 mg PO BID 10 days #20 tabs 02/18/22 tablet prednisone 20 mg tablet 20 mg PO BID 5 days #10 tabs 02/18/22 doxycycline monohydrate 100 mg 100 mg PO BID 10 days #20 caps 04/02/22 capsule Allergies Allergy/AdvReac Type Severity Reaction Status Date / Time oxycodone [From PERCOCET] Allergy Unknown Verified 04/02/22 10:45 Worker's Comp Is this a Worker's Comp case?: No PFSH PFS Disclaimer: The information contained in this section may have been updated after the patient was seen, as this information can be updated by other users. Social History Smoking Status: Current every day smoker tobacco type: cigarettes packs per day: 1 second hand exposure: No alcohol intake: never substance use type: marijuana current occupational status: other Travel in the last 8 weeks: None household members: spouse and family housing: house current occupation: [employer] current occupational exposures/hazards: No caffeine: Yes ROS Obtained: Yes All systems reviewed & no additional complaints except as documented Constitutional Constitutional: Reports malaise Eyes Eyes: Reports system reviewed and no additional complaints, except as documented ENT Ears, Nose, Mouth, and Throat: Reports nasal congestion, Reports nasal discharge, Reports post nasal drip and Reports sore throat Cardiovascular Cardiovascular: Reports system reviewed and no additional complaints, except as documented Respiratory Respiratory: Reports cough and Reports non-productive cough Gastrointestinal Gastrointestingal: Reports system reviewed and no additional complaints, except as documented Genitourinary Female Genitourinary: Reports system reviewed and no a
[2022-04-02 11:57] VITALS: BP 114/77; PULSE 98; RESP 17; TEMP 37.6
== END 2022-04-02 11:58 | disposition home or self-care (01) ==
PROVIDERS: Emergency Provider Nurse Practitioner Family; PCP Nurse Practitioner Family
DX: J06.9 Acute upper respiratory infection, unspecified (principal)
CPT/HCPCS: 87804; 99212; C9803; G0463; U0003; U0005

== ENCOUNTER 2022-08-08 17:04 | Emergency (ER) | payer OTHER, SELFPAY ==
[2022-08-08 18:15] VITALS: BP 119/67; PULSE 70; RESP 18; TEMP 36.9; O2SAT 100; BMI 28.5
--- NOTE | 2022-08-08 18:19 | EXP.UTC ---
Discharge Plan Disposition Patient Disposition: Home, Self-Care Condition: Good Prescriptions Prescriptions: New amoxicillin 875 mg tablet 875 mg PO BID Qty: 20 0RF fluticasone propionate [Flonase Allergy Relief] 50 mcg/actuation spray,suspension 1 - 2 spray intranasal DAILY Qty: 16 0RF Rx Instructions: administer into each nostril No Action prednisone [prednisone] 20 mg tablet 20 mg PO BID 5 Days Qty: 10 0RF doxycycline monohydrate 100 mg tablet 100 mg PO BID 10 Days Qty: 20 0RF albuterol sulfate [Ventolin HFA] 90 mcg/actuation HFA aerosol inhaler 2 puff inhalation QIDP PRN (Reason: Wheezing) 30 Days Qty: 1 0RF doxycycline monohydrate 100 mg capsule 100 mg PO BID 10 Days Qty: 20 0RF escitalopram oxalate 10 MG tablet 10 mg PO DAILY ondansetron HCl 4 MG tablet 4 mg PO TIDP PRN (Reason: Nausea) Qty: 10 0RF Referrals Follow up/Referrals: Zenia Hatch APRN [Primary Care Provider] - See instructions Activity Restrictions/Add. Instructions Additional Instructions/Restrictions: Take medication as prescribed FOllow up with your Family Doctor if no improvement or any worsening of symptoms Return if needed Straight to ER if any life threatening symptoms Clinical Impressions Clinical Impression: Otitis media Qualifiers: Otitis media type: unspecified Laterality: left Qualified Code(s): H66.92 - Otitis media, unspecified, left ear Instructions Patient Instructions: Middle Ear Infection Discharge ED Provider: Shreya Gilliam [facility] General Stated complaint: Left ear pain Time Seen by Provider: 08/08/22 18:19 History of Present Illness Provider Complaint: Patient states that she has been having pain and pressure in her left ear States that as the day went on it has continued to get worse and hurts into her throat when she swallows Related Data Home Medications Medication Instructions Recorded Confirmed escitalopram oxalate 10 mg tablet 10 mg PO DAILY BIPOLAR 06/01/21 07/14/21 Previous Rx's Medication Instructions Recorded ondansetron HCl 4 mg tablet 4 mg PO TIDP PRN Nausea #10 tabs 07/14/21 albuterol sulfate 90 mcg/actuation 2 puff inhalation QIDP PRN 02/18/22 aerosol inhaler (Ventolin HFA) Wheezing 30 days #1 ea doxycycline monohydrate 100 mg 100 mg PO BID 10 days #20 tabs 02/18/22 tablet prednisone 20 mg tablet 20 mg PO BID 5 days #10 tabs 02/18/22 doxycycline monohydrate 100 mg 100 mg PO BID 10 days #20 caps 04/02/22 capsule amoxicillin 875 mg tablet 875 mg PO BID #20 tabs 08/08/22 fluticasone propionate 50 1 - 2 spray intranasal DAILY #16 08/08/22 mcg/actuation nasal grams spray,suspension (Flonase Allergy Relief) Allergies Allergy/AdvReac Type Severity Reaction Status Date / Time oxycodone [From PERCOCET] Allergy Unknown Verified 08/08/22 18:[address] [facility] Disclaimer: The information contained in this section may have been updated after the patient was seen, as this information can be updated by other users. Social History Smoking Status: Current every day smoker tobacco type: cigarettes packs per day: 1 second hand exposure: No alcohol intake: never substance use type: marijuana current occupational status: other Travel in the last 8 weeks: None household members: spouse and family housing: house current occupation: [employer] current occupational exposures/hazards: No caffeine: Yes ROS Obtained: Yes All systems reviewed & no additional complaints except as documented and Yes Systems reviewed as appropriate & no additional complaints except as documented Constitutional Constitutional: Reports system reviewed and no additional complaints, except as documented and Reports as per HPI ENT Ears, Nose, Mouth, and Throat: Reports system reviewed and no additional complaints, except as documented, Reports as per HPI and Reports otalgia Cardi
[2022-08-08 18:56] VITALS: BP 119/67; PULSE 70; RESP 18; TEMP 36.9; O2SAT 100
== END 2022-08-08 18:56 | disposition home or self-care (01) ==
PROVIDERS: Emergency Provider Nurse Practitioner; PCP Nurse Practitioner Family
DX: H66.92 Otitis media, unspecified, left ear (principal); F17.210 Nicotine dependence, cigarettes, uncomplicated
CPT/HCPCS: 99212; 99214; G0463

== ENCOUNTER 2022-08-25 15:59 | Emergency (ER) | payer OTHER, SELFPAY ==
[2022-08-25 16:12] VITALS: BP 111/72; PULSE 115; RESP 16; TEMP 36.9; O2SAT 97; BMI 27.6
--- NOTE | 2022-08-25 17:04 | EXP.UTC ---
Discharge Plan Disposition Patient Disposition: Home, Self-Care Condition: Good Prescriptions Prescriptions: New azithromycin [Zithromax] 250 mg tablet 250 mg PO UD DOSE PK Qty: 6 0RF Rx Instructions: Take two (2) tablets today, then one (1) tablet days #2 thru #5 benzonatate [benzonatate] 100 mg capsule 100 mg PO TIDP PRN (Reason: Cough) Qty: 30 0RF methylprednisolone 4 mg Tablets,Dose Pack 4 mg PO DIRECTED Qty: 21 0RF No Action albuterol sulfate [Ventolin HFA] 90 mcg/actuation HFA aerosol inhaler 2 puff inhalation QIDP PRN (Reason: Wheezing) 30 Days Qty: 1 0RF amoxicillin 875 mg tablet 875 mg PO BID Qty: 20 0RF fluticasone propionate [Flonase Allergy Relief] 50 mcg/actuation spray,suspension 1 - 2 spray intranasal DAILY Qty: 16 0RF Rx Instructions: administer into each nostril cyclobenzaprine 10 mg tablet 10 mg PO DAILY Label Comments: TAKE 1 TABLET BY MOUTH ONCE DAILY NEEDED FOR MUSCLE SPASM escitalopram oxalate 10 MG tablet 10 mg PO DAILY Referrals Follow up/Referrals: Zenia Hatch APRN [Primary Care Provider] - See instructions Activity Restrictions/Add. Instructions Additional Instructions/Restrictions: Drink plenty of fluids. Take tylenol or ibuprofen for pain or fever. Take the medications as directed. Follow up with your regular doctor. GO TO THE ER FOR ANY WORSENING SYMPTOMS Clinical Impressions Clinical Impression: Sinusitis Instructions Patient Instructions: Sinusitis, DI for Sinusitis Discharge ED Provider: Shreya Gilliam [facility] [place] General Stated complaint: CARVER,Congestion,Runny nose Mode of Arrival: Ambulatory Source of Information: Patient Limitations: No Limitations Time Seen by Provider: 08/25/22 16:51 Description of Symptoms (Recalled from Triage Doc. by RN): pt c/o sinus drainage and congestion x2d HEENT Symptoms (Recalled from RN notes): Yes Resp Symptoms (Recalled from RN notes): No Skin Symptoms (Recalled from RN notes): No MS Symptoms (Recalled from RN notes): No Functional Status (Recalled from RN notes): wnl History of Present Illness Provider Complaint: She has been having facial pressure, bilateral ear pain, and nasal congestion for the past 3 days. Related Data Home Medications Medication Instructions Recorded Confirmed escitalopram oxalate 10 mg tablet 10 mg PO DAILY BIPOLAR 06/01/21 08/08/22 cyclobenzaprine 10 mg tablet 10 mg PO DAILY . 08/08/22 08/08/22 Previous Rx's Medication Instructions Recorded albuterol sulfate 90 mcg/actuation 2 puff inhalation QIDP PRN 02/18/22 aerosol inhaler (Ventolin HFA) Wheezing 30 days #1 ea amoxicillin 875 mg tablet 875 mg PO BID #20 tabs 08/08/22 fluticasone propionate 50 1 - 2 spray intranasal DAILY #16 08/08/22 mcg/actuation nasal grams spray,suspension (Flonase Allergy Relief) azithromycin 250 mg tablet 250 mg PO UD DOSE PK #6 tabs 08/25/22 (Zithromax) benzonatate 100 mg capsule 100 mg PO TIDP PRN Cough #30 caps 08/25/22 methylprednisolone 4 mg tablets in 4 mg PO DIRECTED #21 tabs 08/25/22 a dose pack Allergies Allergy/AdvReac Type Severity Reaction Status Date / Time oxycodone [From PERCOCET] Allergy Unknown Verified 08/25/22 16:21 Worker's Comp Is this a Worker's Comp case?: No PFSH [facility] Disclaimer: The information contained in this section may have been updated after the patient was seen, as this information can be updated by other users. Social History Smoking Status: Current every day smoker tobacco type: cigarettes packs per day: 1 second hand exposure: No alcohol intake: never substance use type: marijuana current occupational status: other Travel in the last 8 weeks: None household members: spouse and family housing: house current occupation: [employer] current occupational exposures/hazards: No caffeine: Yes
[2022-08-25 17:09] VITALS: BP 111/72; PULSE 115; RESP 16; TEMP 36.9
== END 2022-08-25 17:10 | disposition home or self-care (01) ==
PROVIDERS: Emergency Provider Nurse Practitioner Family; PCP Nurse Practitioner Family
DX: J01.90 Acute sinusitis, unspecified (principal); H92.03 Otalgia, bilateral; F17.210 Nicotine dependence, cigarettes, uncomplicated
CPT/HCPCS: 99212; 99214; G0463

== ENCOUNTER 2022-08-31 17:06 | Emergency (ER) | payer OTHER, SELFPAY ==
--- NOTE | 2022-08-31 17:20 | XR_ITS ---
PROCEDURE INFORMATION: Exam: XR Chest Exam date and time: 08/31/2022 5:27 PM Age: 37 years old Clinical indication: Pain; Left-sided; Patient HX: Cp w wheezing, SOA, cough. PT dx with bronchitis x 1 wk ago. Smoker. ; Additional info: Chest congestion TECHNIQUE: Imaging protocol: Radiologic exam of the chest. Views: 2 views. COMPARISON: No relevant prior studies available. FINDINGS: Lungs: Unremarkable. No consolidation. Pleural spaces: Unremarkable. No pleural effusion. No pneumothorax. Heart/Mediastinum: Unremarkable. No cardiomegaly. Bones/joints: Unremarkable. Intraperitoneal space: Right upper quadrant surgical clips. IMPRESSION: No acute findings.
[2022-08-31 17:21] VITALS: BP 127/86; PULSE 74; RESP 18; TEMP 36.9; O2SAT 98; BMI 26.7
--- NOTE | 2022-08-31 17:49 | EXP.UTC ---
Discharge Plan Disposition Patient Disposition: Home, Self-Care Condition: Good Prescriptions Prescriptions: New doxycycline monohydrate 100 mg capsule 100 mg PO DAILY Qty: 20 0RF albuterol sulfate [Proventil HFA] 90 mcg/actuation HFA aerosol inhaler 1 inh inhalation Q6H PRN (Reason: shortness of breath or wheezing) Qty: 8.5 0RF guaifenesin [Mucinex] 600 mg tablet extended release 12hr 1,200 mg PO BID PRN (Reason: cough) Qty: 20 0RF No Action albuterol sulfate [Ventolin HFA] 90 mcg/actuation HFA aerosol inhaler 2 puff inhalation QIDP PRN (Reason: Wheezing) 30 Days Qty: 1 0RF amoxicillin 875 mg tablet 875 mg PO BID Qty: 20 0RF fluticasone propionate [Flonase Allergy Relief] 50 mcg/actuation spray,suspension 1 - 2 spray intranasal DAILY Qty: 16 0RF Rx Instructions: administer into each nostril cyclobenzaprine 10 mg tablet 10 mg PO DAILY Label Comments: TAKE 1 TABLET BY MOUTH ONCE DAILY NEEDED FOR MUSCLE SPASM escitalopram oxalate 10 MG tablet 10 mg PO DAILY azithromycin [Zithromax] 250 mg tablet 250 mg PO UD DOSE PK Qty: 6 0RF Rx Instructions: Take two (2) tablets today, then one (1) tablet days #2 thru #5 benzonatate [benzonatate] 100 mg capsule 100 mg PO TIDP PRN (Reason: Cough) Qty: 30 0RF methylprednisolone 4 mg Tablets,Dose Pack 4 mg PO DIRECTED Qty: 21 0RF Referrals Follow up/Referrals: Zenia Hatch APRN [Primary Care Provider] - See instructions Activity Restrictions/Add. Instructions Additional Instructions/Restrictions: Start antibiotic today. Be sure to complete entire prescription even if feeling better Monitor temp. Tylenol every 4 hours as needed and / or ibuprofen every 6 hours as needed ( As long as your primary care physician has told you that it ok to take both. For fever/aches/pains ER if no less than 101 despite Tylenol or Motrin Humidifier/vaporizer or hot steamy shower Inhaler every 4-6 hours as needed like we discussed. If unsure how to use it, ask pharmacist to demonstrate how. Should help open airways and improve cough, wheezing, and shortness of breath Mucinex during the day for your cough and cough suppressant only at night. Be sure to drink lots of water. *Tessalon Perles will not cause drowsiness but use at bedtime to help stop cough so that you may get some rest. Follow up IMMEDIATELY for new or worsening of symptoms OR no noticeable improvement over the next 48-72 hours. 911 immediately for any life threatening symptoms such as chest pain or difficulty breathing Clinical Impressions Clinical Impression: Acute bronchitis Instructions Patient Instructions: Acute Bronchitis, Doxycycline Discharge ED Provider: Shreya Gilliam [facility] [place] General Stated complaint: chest esteban Mode of Arrival: Ambulatory Source of Information: Patient Limitations: No Limitations Time Seen by Provider: 08/31/22 17:49 Description of Symptoms (Recalled from Triage Doc. by RN): pt c/o chest congestion x1wk. pt was seen here and given a zpack on 08/25. she states she is not feeling any better and wants a chest xray HEENT Symptoms (Recalled from RN notes): No Resp Symptoms (Recalled from RN notes): Yes Skin Symptoms (Recalled from RN notes): No MS Symptoms (Recalled from RN notes): No Functional Status (Recalled from RN notes): wnl History of Present Illness Provider Complaint: Patient states that she was seen and treated last week for a sinus infection States that she feels like it has moved into her chest now and she has set up Bronchitis states that she has had it before and feels like it did then States that she will cough up mucous occasionally Related Data Home Medications Medication Instructions Recorded Confirmed escitalopram oxalate 10 mg tablet 10 mg PO DAILY BIPOLAR 06/01/21 08/08/22 cyclobenzaprine 10 mg tablet 10 mg PO DAILY . 08/08/22 08/08/22
[2022-08-31 18:13] VITALS: BP 127/86; PULSE 74; RESP 18; TEMP 36.9
== END 2022-08-31 18:27 | disposition home or self-care (01) ==
PROVIDERS: Emergency Provider Nurse Practitioner; PCP Nurse Practitioner Family
DX: J20.9 Acute bronchitis, unspecified (principal); F17.210 Nicotine dependence, cigarettes, uncomplicated
CPT/HCPCS: 71046; 99212; 99214; G0463

== ENCOUNTER 2022-09-13 08:00 | Outpatient (RCR) | payer OTHER, SELFPAY ==
--- NOTE | 2022-09-09 08:59 | HMH.RHREAS ---
Rehab Reassessment Rehab OP Re-assessment Start: 09/09/22 08:50 Freq: Status: Active Protocol: Document 09/09/22 08:51 LALIT (Rec: 09/09/22 08:59 LALIT [id number]) E-signed By Santi Sanchez, PT Rehab Re-assessment Subjective Subjective Patient reports 40% improvement since start of care. Objective Objective Notes AROM: flx WNL; ext 19; SBr 21; SBl 19 MMT: WNL Pain: 2/10 today; 9/10 at worst over past week Neuro: WNL Assessment Progress Assessment Progressing as Expected Assessment Notes Improvements as noted above. Patient continues to complain of R lower thoracic, lumbar and hip pain, though decreased frequency, intensity and duration noted. SI special tests negative today. Patient would benefit from continuing with skilled PT servicces in order to address functional limitations with all prolonged standing/walking, bending and lifting activities. Patient goals met STG 2 Goals Not Met All others Revised Goals NA Plan Plan Continue with current POC. Frequency of Therapy 2x/week Duration of therapy 4 weeks PHYSICIAN CERTIFICATION: I certify the specified therapy services for Deena Whitman are required, authorized, and reviewed every 30 days.
== END 2022-09-13 08:05 | disposition home or self-care (01) ==
LOC: PT 08:00
PROVIDERS: PCP Nurse Practitioner Family; Visit Provider Nurse Practitioner Family
DX: M54.9 Dorsalgia, unspecified (principal)
CPT/HCPCS: 97010; 97014; 97110; 97140; 97163; 97164; G0283

== ENCOUNTER 2023-04-22 08:35 | Emergency (ER) | payer OTHER, SELFPAY ==
[2023-04-22 09:00] VITALS: BP 119/80; PULSE 74; RESP 20; TEMP 37.4; O2SAT 98; BMI 26.4
[2023-04-22 09:19] VITALS: BP 119/80; PULSE 74; RESP 20; TEMP 37.4; O2SAT 98
--- NOTE | 2023-04-22 09:31 | ED_ITS ---
Discharge Plan Disposition Patient Disposition: Home, Self-Care Condition: Good Prescriptions Prescriptions: New doxycycline hyclate 100 mg capsule 100 mg PO BID Qty: 20 0RF benzonatate 100 mg capsule 100 mg PO TID PRN (Reason: cough) Qty: 30 0RF methylprednisolone [Medrol (Ferdinand)] 4 mg tablets,dose pack See Rx Instructions .Route .COMPLEX 6 Days Qty: 21 0RF Rx Instructions: taper pack; No Action escitalopram oxalate 10 MG tablet 10 mg PO DAILY Referrals Follow up/Referrals: Zenia Hatch APRN [Primary Care Provider] - See instructions Activity Restrictions/Add. Instructions Additional Instructions/Restrictions: * Start antibiotic today. Be sure to complete entire prescription even if feeling better * Monitor temp. Tylenol every 4 hours as needed and / or ibuprofen every 6 hours as needed ( As long as your primary care physician has told you that it ok to take both. For fever/aches/pains ER if no less than 101 despite Tylenol or Motrin * Humidifier/vaporizer or hot steamy shower * *Tessalon Perles will not cause drowsiness but use at bedtime to help stop cough so that you may get some rest. *Start steroid today. Helps with inflammation therefore, cough and wheezing. Follow directions on the package. Reviewed side effects. Patient reports taking them before. Follow up IMMEDIATELY for new or worsening of symptoms OR no noticeable improvement over the next 48-72 hours. 911 immediately for any life threatening symptoms such as chest pain or difficulty breathing Clinical Impressions Clinical Impression: Acute bronchitis, Sinusitis Stand Alone Forms Stand Alone Forms: Work/School Release Instructions Patient Instructions: Sinusitis, Sinus Headache Discharge ED Provider: Shreya Gilliam [facility] General Stated complaint: runny nose, congestion, cough Mode of Arrival: Ambulatory Source of Information: Patient Limitations: No Limitations Time Seen by Provider: 04/22/23 09:31 Description of Symptoms (Recalled from Triage Doc. by RN): PATIENT C/O COUGH AND HEAD/CHEST CONGESTION THAT STARTED THE NIGHT BEFORE LAST HEENT Symptoms (Recalled from RN notes): Yes Resp Symptoms (Recalled from RN notes): Yes Skin Symptoms (Recalled from RN notes): No MS Symptoms (Recalled from RN notes): No Functional Status (Recalled from RN notes): WNL History of Present Illness Provider Complaint: Patient states that she has been having some sinus pain and pressure, scratchy throat, drainage in the back of her throat and feeling like it is trying to move into her chest States that she gets Bronchitis a couple luis eduardo es a year and feels like it does when it starts so she came in to get checked Related Data Home Medications Medication Instructions Recorded Confirmed escitalopram oxalate 10 mg tablet 10 mg PO DAILY BIPOLAR 06/01/21 04/22/23 Previous Rx's Medication Instructions Recorded benzonatate 100 mg capsule 100 mg PO TID PRN cough #30 caps 04/22/23 doxycycline hyclate 100 mg capsule 100 mg PO BID #20 caps 04/22/23 methylprednisolone 4 mg tablets in See Rx Instructions .Route 04/22/23 a dose pack (Medrol (Ferdinand)) .COMPLEX 6 days #21 tabs Allergies Allergy/AdvReac Type Severity Reaction Status Date / Time oxycodone [From PERCOCET] Allergy Unknown Verified 08/31/22 17:24 Worker's Comp Is this a Worker's Comp case?: No [facility] Disclaimer: The information contained in this section may have been updated after the patient was seen, as this information can be updated by other users. Medical History (Updated 04/22/23 @ 09:43 by Shreya Gilliam APRN) Anxiety Asthma Depression Surgical History (Updated 04/22/23 @ 09:10 by Ashli Mueller RN) History of section History of cholecystectomy History of tubal ligation Social History Smoking Status: Current every day smoker tobacco type: cigarettes packs per day: 1 second hand exposure: No alcohol intake: never substance use type: marijuana current occupational status: employed Travel in the last 8 weeks: None household members: spouse housing: house current occupation: [employer] current occupational exposures/hazards: No caffeine: Yes ROS Obtained: Yes All systems reviewed & no additional complaints except as documented and Yes Systems reviewed as appropriate & no additional complaints except as documented Constitutional Constitutional: Reports system reviewed and no additional complaints, except as documented, Reports as per HPI and Reports headache(s) ENT Ears, Nose, Mouth, and Throat: Reports system reviewed and no additional complaints, except as documented, Reports as per HPI, Reports headache(s), Reports sinus pain and Reports sinus pressure Cardiovascular Cardiovascular: Reports system reviewed and no additional complaints, except as documented and Reports as per HPI Respiratory Respiratory: Reports system reviewed and no additional complaints, except as documented, Reports as per HPI, Denies shortness of breath, Reports chest congestion and Reports cough Gastrointestinal Gastrointestingal: Reports system reviewed and no additional complaints, except as documented and as per HPI Neurologic Neurologic: Reports headache(s) Physical Exam General General appearance: alert and in no apparent distress ENT ENT exam: Present mucous membranes moist Expanded ENT Exam Nose exam: Present sinus tenderness Throat exam: Present other (Pharyngeal erythema noted with PND) Respiratory Respiratory exam: Present normal lung sounds bilaterally; Absent respiratory distress or wheezes Cardiovascular Cardiovascular exam: Present regular rate, normal rhythm and normal heart sounds Abdominal Exam Abdominal exam: Present soft and normal bowel sounds; Absent distention or tenderness Neurological Exam Neurological exam: Present alert, oriented X3 and normal gait Medical Decision Making Javi Inquiry Pt receiving controlled substance: No Jvai was queried for this patient: No Vital Signs: 04/22/23 09:00 04/22/23 09:19 Temperature 99.3 F 99.3 F Temperature Source Oral Pulse Rate 74 Pulse Rate [Right Brachial] 74 Respiratory Rate 20 20 Blood Pressure 119/80 Blood Pressure [Right Arm] 119/80 Blood Pressure Mean [Right Arm] 93 Blood Pressure Source [Right Arm] Automatic Cuff Blood Pressure Position [Right Arm] Sitting 02 Sat by Pulse Oximetry 98 Oxygen Delivery Method Room Air
== END 2023-04-22 09:55 | disposition home or self-care (01) ==
PROVIDERS: Emergency Provider Nurse Practitioner; PCP Nurse Practitioner Family
DX: J20.9 Acute bronchitis, unspecified (principal); J01.90 Acute sinusitis, unspecified; R51.9 Headache, unspecified; R05.9 Cough, unspecified; R09.81 Nasal congestion; R09.82 Postnasal drip; R07.0 Pain in throat; F17.210 Nicotine dependence, cigarettes, uncomplicated; J45.909 Unspecified asthma, uncomplicated
CPT/HCPCS: 87635; 99212; 99214; G0463

== ENCOUNTER 2023-06-13 13:24 | Emergency (ER) | payer OTHER, SELFPAY ==
[2023-06-13 13:35] VITALS: BP 118/78; PULSE 75; RESP 19; TEMP 36.9; O2SAT 100; BMI 30.1
[2023-06-13 13:51] VITALS: BP 118/78; PULSE 75; RESP 19; TEMP 36.9; O2SAT 100
--- NOTE | 2023-06-13 13:52 | ED_ITS ---
Discharge Plan Disposition Patient Disposition: Home, Self-Care Condition: Good Prescriptions Prescriptions: New amoxicillin 500 mg capsule 500 mg PO TID 7 Days Qty: 21 0RF fluticasone propionate [Flonase Allergy Relief] 50 mcg/actuation spray,suspension 2 spray intranasal DAILY Qty: 16 0RF Rx Instructions: administer into each nostril daily Referrals Follow up/Referrals: Zenia Hatch APRN [Primary Care Provider] - See instructions Activity Restrictions/Add. Instructions Additional Instructions/Restrictions: Take medication as prescribed Use flonase in each nostril daily Follow up with your Family Doctor if no improvement Clinical Impressions Clinical Impression: Otitis media Qualifiers: Otitis media type: unspecified Laterality: left Qualified Code(s): H66.92 - Otitis media, unspecified, left ear Instructions Patient Instructions: Middle Ear Infection, DI for Ear Pain-Adult Discharge ED Provider: Shreya Gilliam [facility] General Stated complaint: pain in L ear Mode of Arrival: Ambulatory Source of Information: Patient Limitations: No Limitations Time Seen by Provider: 06/13/23 13:52 Description of Symptoms (Recalled from Triage Doc. by RN): PATIENT C/O LEFT EAR PAIN SINCE YESTERDAY HEENT Symptoms (Recalled from RN notes): Yes Resp Symptoms (Recalled from RN notes): No Skin Symptoms (Recalled from RN notes): No MS Symptoms (Recalled from RN notes): No Functional Status (Recalled from RN notes): WNL History of Present Illness Provider Complaint: Patient states that she has been having pain and pressure in her left ear worse since yesterday and feels like the pain is going down into her neck area so today when it was still hurting she came in Related Data Previous Rx's Medication Instructions Recorded amoxicillin 500 mg capsule 500 mg PO TID 7 days #21 caps 06/13/23 fluticasone propionate 50 2 spray intranasal DAILY #16 grams 06/13/23 mcg/actuation nasal spray,suspension (Flonase Allergy Relief) Allergies Allergy/AdvReac Type Severity Reaction Status Date / Time oxycodone [From PERCOCET] Allergy Unknown Verified 08/31/22 17:24 Worker's Comp Is this a Worker's Comp case?: No [facility] Disclaimer: The information contained in this section may have been updated after the patient was seen, as this information can be updated by other users. Medical History (Updated 06/13/23 @ 13:57 by Shreya Gilliam APRN) Anxiety Asthma Depression Surgical History (Updated 04/22/23 @ 09:10 by Ashli Mueller RN) History of section History of cholecystectomy History of tubal ligation Social History Smoking Status: Current every day smoker tobacco type: cigarettes packs per day: 1 second hand exposure: No alcohol intake: never substance use type: marijuana current occupational status: employed Travel in the last 8 weeks: None household members: spouse housing: house current occupation: [employer] current occupational exposures/hazards: No caffeine: Yes ROS Obtained: Yes All systems reviewed & no additional complaints except as documented and Yes Systems reviewed as appropriate & no additional complaints except as documented Constitutional Constitutional: Reports system reviewed and no additional complaints, except as documented and Reports as per HPI ENT Ears, Nose, Mouth, and Throat: Reports system reviewed and no additional complaints, except as documented, Reports as per HPI and Reports otalgia Cardiovascular Cardiovascular: Reports system reviewed and no additional complaints, except as documented and Reports as per HPI Respiratory Respiratory: Reports system reviewed and no additional complaints, except as documented and Reports as per HPI Gastrointestinal Gastrointestingal: Reports system reviewed and no additional complaints, except as documented and as per HPI Musculoskeletal Musculoskeletal: Reports system reviewed and no additional complaints, except as documented and Reports as per HPI Physical Exam General General appearance: alert and in no apparent distress ENT ENT exam: Present mucous membranes moist Expanded ENT Exam TM/Canal exam: Left TM: erythema and bulging Respiratory Respiratory exam: Present normal lung sounds bilaterally; Absent respiratory distress or wheezes Cardiovascular Cardiovascular exam: Present regular rate, normal rhythm and normal heart sounds Neurological Exam Neurological exam: Present alert, oriented X3 and normal gait Medical Decision Making Javi Inquiry Pt receiving controlled substance: No Javi was queried for this patient: No Vital Signs: 06/13/23 13:35 06/13/23 13:51 Temperature 98.4 F 98.4 F Temperature Source Oral Pulse Rate 75 Pulse Rate [Left Brachial] 75 Respiratory Rate 19 19 Blood Pressure 118/78 Blood Pressure [Left Arm] 118/78 Blood Pressure Mean [Left Arm] 91 Blood Pressure Source [Left Arm] Automatic Cuff Blood Pressure Position [Left Arm] Sitting 02 Sat by Pulse Oximetry 100 Oxygen Delivery Method Room Air
== END 2023-06-13 14:03 | disposition home or self-care (01) ==
PROVIDERS: Emergency Provider Nurse Practitioner; PCP Nurse Practitioner Family
DX: H66.92 Otitis media, unspecified, left ear (principal); F17.210 Nicotine dependence, cigarettes, uncomplicated
CPT/HCPCS: 99212; 99214; G0463

== ENCOUNTER → 2023-11-22 07:31 | Outpatient (CLI) | payer OTHER, SELFPAY | LOC: SL 07:32 | PROVIDERS: PCP Nurse Practitioner Family; Visit Provider Nurse Practitioner Family | DX: G47.33 Obstructive sleep apnea (adult) (pediatric) (principal); G47.00 Insomnia, unspecified | CPT/HCPCS: G0399 ==

== ENCOUNTER 2023-11-29 11:19 | Emergency (ER) | payer OTHER, SELFPAY ==
[2023-11-29 11:50] VITALS: BP 109/64; PULSE 80; RESP 21; TEMP 36.6; O2SAT 98; BMI 27.1
[2023-11-29 12:01] LABS: Apearance,Urine Cloudy (Clear); Bilirubin,Urine Negative (Negative); Blood, Urine 3+ (Negative); Color,Urine Yellow (Yellow); Glucose,Urine (UA) Negative (Negative); Ketones,Urine Negative (Negative); Protein,Urine 1+ (Negative); Specific Gravity, Urine >= 1.030 (1.005-1.030); UTC Leukocyte Esterase,Urine 2+ (Negative); UTC Nitrate,Urine Negative (Negative); Urobilinogen,Urine 0.2 EU/dl (0.2)
[2023-11-29 12:02] LABS: UTC Pregnancy Test, Urine Negative (Negative)
--- NOTE | 2023-11-29 12:13 | EXP.UTC ---
Discharge Plan Disposition Patient Disposition: Home, Self-Care Condition: Good Prescriptions Prescriptions: New phenazopyridine [Pyridium] 200 mg tablet 200 mg PO Q8H 2 Days Qty: 6 0RF nitrofurantoin monohyd/m-cryst [Macrobid] 100 mg Capsule 100 mg PO BID Qty: 10 0RF Rx Instructions: must administer with a meal/food Referrals Follow up/Referrals: Zenia Hatch APRN [Primary Care Provider] - See instructions Activity Restrictions/Add. Instructions Additional Instructions/Restrictions: Drink plenty of fluids. Take tylenol or ibuprofen for pain or fever. Take the medications as directed. Follow up with your regular doctor. GO TO THE ER FOR ANY WORSENING SYMPTOMS The pyridium will make your urine turn orange, this is an expected side effect. It will stain your clothes if it comes into contact with them. We will culture the urine. That will tell what bacteria is causing your infection and which antibiotics will treat it best. Sometimes the first antibiotic we prescribe turns out to not work against different bacteria. So, make sure you follow up within 3 days if you are not getting better. Clinical Impressions Clinical Impression: UTI (urinary tract infection) Instructions Patient Instructions: Urine Culture, DI for Urinary Tract Infection (UTI), Phenazopyridine Print Language Print Language: Citizen [place] Discharge ED Provider: Jc Álvarez [facility] General Stated complaint: possible UTI Mode of Arrival: Ambulatory Source of Information: Patient Limitations: No Limitations Time Seen by Provider: 11/29/23 12:13 Description of Symptoms (Recalled from Triage Doc. by RN): PATIENT C/O PAIN WITH URINATION AND PRESSURE TO GENITAL AREA THAT STARTED 2-3 DAYS AGO HEENT Symptoms (Recalled from RN notes): No Resp Symptoms (Recalled from RN notes): No Skin Symptoms (Recalled from RN notes): No MS Symptoms (Recalled from RN notes): No Functional Status (Recalled from RN notes): WNL Related Data Previous Rx's ?Medication ?Instructions ?Recorded nitrofurantoin 100 mg PO BID #10 caps 11/29/23 monohydrate/macrocrystals 100 mg capsule (Macrobid) phenazopyridine 200 mg tablet 200 mg PO Q8H 2 days #6 tabs 11/29/23 (Pyridium) Allergies Allergy/AdvReac Type Severity Reaction Status Date / Time oxycodone [From PERCOCET] Allergy Unknown Verified 08/31/22 17:24 Worker's Comp Is this a Worker's Comp case?: No [facility] Disclaimer: The information contained in this section may have been updated after the patient was seen, as this information can be updated by other users. Medical History (Updated 11/29/23 @ 12:20 by Jc Álvarez APRN) Depression Anxiety Asthma Surgical History (Updated 04/22/23 @ 09:10 by Ashli Mueller RN) History of cholecystectomy History of section History of tubal ligation Social History Smoking Status: Current every day smoker tobacco type: cigarettes packs per day: 1 second hand exposure: No alcohol intake: never substance use type: marijuana current occupational status: employed Travel in the last 8 weeks: None household members: spouse housing: house current occupation: [employer] current occupational exposures/hazards: No caffeine: Yes ROS Obtained: Yes All systems reviewed & no additional complaints except as documented Constitutional Constitutional: Reports system reviewed and no additional complaints, except as documented, Denies chills and Denies fever(s) Eyes Eyes: Denies eye discharge ENT Ears, Nose, Mouth, and Throat: Denies dysphagia, Denies sore throat and Denies throat swelling Cardiovascular Cardiovascular: Denies chest pain and Denies dyspnea Respiratory Respiratory: Denies chest congestion, Denies cough and Denies dyspnea Gastrointestinal Gastrointestingal: Denies abdominal pain, constipation, diarrhea, dysphagia, nausea or vomiting Genitourinary Female Genitourinary: Reports as per HPI, Reports dysuria, Reports urinary frequency, Denies urinary incontinence and Reports urinary hesitancy Musculoskeletal Musculoskeletal: Denies arthralgias and Reports back pain Integumentary/Breasts Skin/Breast: Denies rash Neurologic Neurologic: Denies paresthesias Allergic/Immunologic Allergic/Immunologic: Denies throat swelling Physical Exam General General appearance: alert and in no apparent distress Head Head exam: atraumatic and normocephalic Eye Eye exam: Present normal appearance, PERRL and EOMI ENT ENT exam: Present normal exam, mucous membranes moist, TM's normal bilaterally and normal external ear exam Neck Neck exam: Present normal inspection, full ROM and trachea midline; Absent tenderness, meningismus or lymphadenopathy Chest Chest inspection: Present normal inspection and symmetric chest wall rise; Absent tenderness Respiratory Respiratory exam: Present normal lung sounds bilaterally; Absent respiratory distress, wheezes or stridor Cardiovascular Cardiovascular exam: Present regular rate, normal rhythm and normal heart sounds Abdominal Exam Abdominal exam: Present soft and normal bowel sounds; Absent distention, tenderness, guarding, rebound, rigidity, incision, psoas sign, obturator sign, heel tap sign, Steven's sign, Rovsing's sign or tenderness at McBurney's Point Extremities Exam Extremities exam: Present normal inspection, full ROM and normal capillary refill; Absent tenderness, edema, joint swelling, calf tenderness or cyanosis Back Exam Back exam: Present normal inspection and full ROM; Absent tenderness, CVA tenderness (R) or CVA tenderness (L) Neurological Exam Neurological exam: Present alert, oriented X3 and normal gait Psychiatric Psychiatric exam: Present normal affect and normal mood Skin Skin exam: Present warm, dry, intact and normal color Lymphatic Lymphatic Findings: no adenopathy Medical Decision Making Medical Records Medical records reviewed: No I reviewed the patient's medical records. Javi Inquiry Pt receiving controlled substance: No Vital Signs: 11/29/23 11:50 Temperature 97.9 F Temperature Source Oral Pulse Rate [Left Brachial] 80 Respiratory Rate 21 Blood Pressure [Left Arm] 109/64 L Blood Pressure Mean [Left Arm] 79 Blood Pressure Source [Left Arm] Automatic Cuff Blood Pressure Position [Left Arm] Sitting 02 Sat by Pulse Oximetry 98 Oxygen Delivery Method Room Air Lab Data Lab results reviewed: Yes I reviewed the patient's lab results. Lab Results 11/29/23 12:00: Urine Color Yellow, Urine Appearance Cloudy, Urine pH 6.0, Ur Specific [place] >= 1.030, Urine Protein 1+, Urine Glucose (UA) Negative, Urine Ketones Negative, Urine Blood 3+, Urine Nitrate Negative, Urine Bilirubin Negative, Urine Urobilinogen 0.2, Ur Leukocyte Esterase 2+ A 11/29/23 12:02: [facility] Clinic Negative Orders (Tests/Meds): ORDERS Category Date Time Status Urine Culture Stat Micro 11/29/23 11:20 Received
[2023-11-29 12:20] VITALS: BP 109/64; PULSE 80; RESP 21; TEMP 36.6; O2SAT 98
--- NOTE | 2023-12-02 10:27 | PC.NURSE ---
REVIEWED PATIENT'S URINE CULTURE WITH Alesha SANCHEZ APRN. CURRENT ANTIBIOTIC NOT SUSCEPTIBLE TO ORGANISM. MINOCYCLINE SENT TO PHARMACY PER Alesha SANCHEZ APRN. PATIENT NOTIFIED OF CULTURE RESULTS AND NEW PRESCRIPTION. PATIENT ADVISED TO STOP CURRENT ANTIBIOTIC AND FOLLOW UP WITH PCP. PATIENT VERBALIZED UNDERSTANDING
== END 2023-11-29 12:24 | disposition home or self-care (01) ==
PROVIDERS: Emergency Provider Nurse Practitioner Family; PCP Nurse Practitioner Family
DX: N39.0 Urinary tract infection, site not specified (principal); B95.7 Other staphylococcus as the cause of diseases classified elsewhere; R30.9 Painful micturition, unspecified
CPT/HCPCS: 81003; 81025; 87086; 87088; 87186; 99212; 99214; G0463

== ENCOUNTER 2024-01-12 12:30 | Emergency (ER) | payer OTHER, SELFPAY ==
[2024-01-12 12:40] VITALS: BP 116/85; PULSE 86; RESP 21; TEMP 36.6; O2SAT 98; BMI 27.8
--- NOTE | 2024-01-12 13:07 | EXP.UTC ---
Discharge Plan Disposition Patient Disposition: Home, Self-Care Condition: Good Prescriptions Prescriptions: New amoxicillin 875 mg tablet 875 mg PO Q12H Qty: 20 0RF fluticasone propionate [Flonase Allergy Relief] 50 mcg/actuation spray,suspension 1 - 2 spray intranasal DAILY Qty: 16 0RF Rx Instructions: administer into each nostril Referrals Follow up/Referrals: Zenia Hatch APRN [Primary Care Provider] - See instructions Activity Restrictions/Add. Instructions Additional Instructions/Restrictions: Take medication as prescribed Use Flonase as prescribed Follow up with your Family Doctor Return if needed Clinical Impressions Clinical Impression: Otitis media Qualifiers: Otitis media type: unspecified Laterality: left Qualified Code(s): H66.92 - Otitis media, unspecified, left ear Instructions Patient Instructions: Ear Infections (Alternative Therapy), Middle Ear Infection Print Language Print Language: [place]ian Discharge ED Provider: Shreya Gilliam [facility] H[place] General Stated complaint: ear pain in both ears Mode of Arrival: Ambulatory Source of Information: Patient Limitations: No Limitations Time Seen by Provider: 01/12/24 13:07 Description of Symptoms (Recalled from Triage Doc. by RN): PATIENT C/O POSSIBLE EAR INFECTION X 2 DAYS HEENT Symptoms (Recalled from RN notes): Yes Resp Symptoms (Recalled from RN notes): No Skin Symptoms (Recalled from RN notes): No MS Symptoms (Recalled from RN notes): No Functional Status (Recalled from RN notes): WNL History of Present Illness Provider Complaint: Patient states that she has been having pain and pressure in her left ear that has continued to get worse over the last couple of days so today when they was still bothering her she came in to get checked Related Data Previous Rx's ?Medication ?Instructions ?Recorded amoxicillin 875 mg tablet 875 mg PO Q12H #20 tabs 01/12/24 fluticasone propionate 50 1 - 2 spray intranasal DAILY #16 01/12/24 mcg/actuation nasal grams spray,suspension (Flonase Allergy Relief) Allergies Allergy/AdvReac Type Severity Reaction Status Date / Time oxycodone [From PERCOCET] Allergy Unknown Verified 08/31/22 17:24 Worker's Comp Is this a Worker's Comp case?: No [facility] Disclaimer: The information contained in this section may have been updated after the patient was seen, as this information can be updated by other users. Medical History (Updated 01/12/24 @ 13:12 by Shreya Gilliam APRN) Depression Anxiety Asthma Surgical History (Updated 04/22/23 @ 09:10 by Ashli Mueller RN) History of cholecystectomy History of section History of tubal ligation Social History Smoking Status: Current every day smoker tobacco type: cigarettes packs per day: 1 second hand exposure: No alcohol intake: never substance use type: marijuana current occupational status: employed Travel in the last 8 weeks: None household members: spouse housing: house current occupation: [employer] current occupational exposures/hazards: No caffeine: Yes ROS Obtained: Yes All systems reviewed & no additional complaints except as documented and Yes Systems reviewed as appropriate & no additional complaints except as documented Constitutional Constitutional: Reports system reviewed and no additional complaints, except as documented and Reports as per HPI ENT Ears, Nose, Mouth, and Throat: Reports system reviewed and no additional complaints, except as documented, Reports as per HPI and Reports otalgia Cardiovascular Cardiovascular: Reports system reviewed and no additional complaints, except as documented and Reports as per HPI Respiratory Respiratory: Reports system reviewed and no additional complaints, except as documented and Reports as per HPI Gastrointestinal Gastrointestingal: Reports system reviewed and no additional complaints, except as documented and as per HPI Genitourinary Female Genitourinary: Reports system reviewed and no additional complaints, except as documented and Reports as per HPI Physical Exam General General appearance: alert and in no apparent distress ENT ENT exam: Present mucous membranes moist Expanded ENT Exam TM/Canal exam: Left TM: erythema and Bilateral TM: bulging Respiratory Respiratory exam: Present normal lung sounds bilaterally; Absent respiratory distress or wheezes Cardiovascular Cardiovascular exam: Present regular rate, normal rhythm and normal heart sounds Neurological Exam Neurological exam: Present alert, oriented X3 and normal gait Medical Decision Making Medical Records Screening: Per USPSTF and CDC recommendations, given the prevalence of disease in our region, it is our hospital?s policy to screen for HIV and viral Hepatitis for all patients aged 18 and over and those with ongoing risk factors. Javi Inquiry Pt receiving controlled substance: No Javi was queried for this patient: No Vital Signs: 01/12/24 12:40 Temperature 97.9 F Temperature Source Oral Pulse Rate [Left Brachial] 86 Respiratory Rate 21 Blood Pressure [Left Arm] 116/85 Blood Pressure Mean [Left Arm] 95 Blood Pressure Source [Left Arm] Automatic Cuff Blood Pressure Position [Left Arm] Sitting 02 Sat by Pulse Oximetry 98
[2024-01-12 13:13] VITALS: BP 116/85; PULSE 86; RESP 21; TEMP 36.6; O2SAT 98
== END 2024-01-12 13:17 | disposition home or self-care (01) ==
PROVIDERS: Emergency Provider Nurse Practitioner; PCP Nurse Practitioner Family
DX: H66.92 Otitis media, unspecified, left ear (principal)
CPT/HCPCS: 99212; 99214; G0463

== ENCOUNTER → 2024-06-17 19:48 | Outpatient (CLI) | payer OTHER, SELFPAY | LOC: SL 19:51 | PROVIDERS: PCP Nurse Practitioner Family; Visit Provider Nurse Practitioner Family | DX: G47.33 Obstructive sleep apnea (adult) (pediatric) (principal); G47.00 Insomnia, unspecified; E66.9 Obesity, unspecified; G47.10 Hypersomnia, unspecified | CPT/HCPCS: 95810 ==

== ENCOUNTER 2024-12-17 09:43 | Outpatient (CLI) | payer OTHER, SELFPAY ==
[2024-12-17 14:57] LABS: Influenza A, PCR Not Detected (NotDetected); Influenza B, PCR Not Detected (NotDetected)
[2024-12-17 17:27] LABS: Coronavirus 19, PCR Detected (NotDetected)
== END 2024-12-17 23:59 | disposition home or self-care (01) ==
LOC: LAB.DROPOF 12-19 12:49
PROVIDERS: PCP Student in an Organized Health Care Education/Training Program; Visit Provider Student in an Organized Health Care Education/Training Program
DX: J06.9 Acute upper respiratory infection, unspecified (principal)
CPT/HCPCS: 87631

== ENCOUNTER 2025-01-29 14:45 | Outpatient (CLI) | payer OTHER, SELFPAY ==
[2025-01-29 15:09] LABS: Hematocrit 47.6 % (37.0-47.0); Hemoglobin 15.6 g/dL (12.2-16.2); Immature Granulocytes % 0.2 %; Mean Corpuscular HGB Conc 32.8 g/dL (31.8-35.4); Mean Corpuscular Hemoglobin 25.1 pg (27.0-31.2); Mean Corpuscular Volume 76.5 fl (81-99); Nucleated Red Blood Cells % 0 %; Platelet Count 349 K/mm3 (142-424); Red Blood Count 6.22 M/mm3 (4.20-5.40); Red Cell Distribution Width-SD 37.8 fL; White Blood Count 13.1 K/mm3 (4.8-10.8)
== END 2025-01-29 23:59 | disposition home or self-care (01) ==
LOC: LAB 14:45
PROVIDERS: PCP Nurse Practitioner Family; Visit Provider Internal Medicine Medical Oncology
DX: R79.89 Other specified abnormal findings of blood chemistry (principal)
CPT/HCPCS: 36415; 85025

== ENCOUNTER 2025-02-11 13:09 | Outpatient (CLI) | payer OTHER, SELFPAY ==
--- NOTE | 2025-02-11 13:11 | MM_ITS ---
PROCEDURE INFORMATION: Exam: Bilateral Screening 3D Mammography Exam date and time: 02/11/2025 1:19 PM Age: 40 years old Clinical indication: Baseline. Her mother had breast cancer. TECHNIQUE: Imaging protocol: Bilateral Screening tomosynthesis and 2D mammography including computer-aided detection (CAD) when performed. COMPARISON: No relevant prior studies available. FINDINGS: MAMMOGRAPHY: Breast composition: The breasts are heterogeneously dense, which may obscure small masses. Mass: Questioned 1.0 cm mass/circumscribed asymmetry in the medial right breast, middle 3rd, that 6-8 cm from the nipple,CC image 1026 frame 23 only. Architectural distortion: None. Calcifications: No suspicious calcifications. Asymmetric density: None. Skin thickening: None. Axillary adenopathy: None. IMPRESSION: Patient will be recalled for right diagnostic mammography with spot compression in CC, full field lateral, and right sonography with attention to the medial half of the breast for further evaluation of a possible mass. Given the reported risk factors coupled with the patient's breast density, a breast cancer risk assessment may prove useful for further evaluation. ASSESSMENT: BI-RADS Category 0: Incomplete: Need Additional Imaging Evaluation.
== END 2025-02-11 23:59 | disposition home or self-care (01) ==
LOC: RAD 13:10
PROVIDERS: PCP Student in an Organized Health Care Education/Training Program; Visit Provider Internal Medicine Adolescent Medicine
DX: Z12.31 Encounter for screening mammogram for malignant neoplasm of breast (principal); R92.333 Mammographic heterogeneous density, bilateral breasts; R92.8 Other abnormal and inconclusive findings on diagnostic imaging of breast; Z80.3 Family history of malignant neoplasm of breast
CPT/HCPCS: 77063; 77067

== ENCOUNTER 2025-03-05 14:09 | Outpatient (CLI) | payer OTHER, SELFPAY ==
--- NOTE | 2025-03-05 14:11 | MM_ITS ---
PROCEDURE INFORMATION: Exam: US Right Breast, Complete MG Right Diagnostic Breast Tomosynthesis Exam date and time: 03/05/2025 2:30 PM Age: 40 years old Clinical indication: Patient recalled on the basis of a screening mammogram for further evaluation; Right breast; Mass TECHNIQUE: Imaging protocol: Complete ultrasound of all four quadrants of the right breast and the retroareolar regions, including ultrasound of the axilla when performed. Right Diagnostic tomosynthesis and 2D mammography including computer-aided detection (CAD) when performed. Unilateral or bilateral exam. COMPARISON: Mammogram dated 02/11/2025 FINDINGS: MAMMOGRAPHY: Breast composition: The breasts are heterogeneously dense, which may obscure small masses. Breast mammogram findings: Digital diagnostic spot compression views of the right breast and 90 degree lateral view of the right breast demonstrate a persistent ovoid 1.0 cm mass ULTRASOUND: Breast ultrasound findings: Sonographic images of the right 3 o'clock axis 4 cm from the nipple demonstrate a uniformly hypoechoic well-circumscribed ovoid solid mass measuring 0.9 x 0.4 x 0.8 cm corresponding to the mass on mammography. The finding is likely benign etiology, reflecting focal fibroadenomatous and fibrocystic change. Hypoechoic ovoid mass in the right 9 o'clock axis 2 cm from the nipple measures 0.5 x 0.6 x 0.4 cm. Bilobed uniformly hypoechoic solid mass in the right 11 o'clock axis 2 cm from the nipple measures 0.8 x 0.4 x 0.8 cm. No other solid or cystic masses are noted in the remainder of the right breast. No axillary adenopathy. IMPRESSION: Three hypoechoic masses in the right breast. They are multiplicity in uniformity or suggestive of a benign etiology. A six-month follow-up targeted right breast ultrasound is recommended to ensure stability over time. ASSESSMENT: BI-RADS Category 3: Probably benign.
== END 2025-03-05 23:59 | disposition home or self-care (01) ==
PROVIDERS: PCP Nurse Practitioner Obstetrics & Gynecology; Visit Provider Internal Medicine Adolescent Medicine
DX: N63.15 Unspecified lump in the right breast, overlapping quadrants (principal); N63.11 Unspecified lump in the right breast, upper outer quadrant; R92.331 Mammographic heterogeneous density, right breast
CPT/HCPCS: 76641; 77061; 77065; G0279